=== PATIENT | male | born 1995 | race Caucasian/White ===

== ENCOUNTER → 2018-06-18 15:40 | Outpatient (CLI) | payer OTHER, SELFPAY ==
--- NOTE | 2018-06-18 15:43 | DI.RAD.S_ITS ---
PROCEDURE: XR ANKLE RT MIN 3V INDICATIONS: ANKLE/LOWER TIBIA PAIN TECHNIQUE: 3 views of the right ankle were acquired. COMPARISON: [facility], , ANKLE 3 VIEWS LEFT, 03/03/2011, 13:47. FINDINGS: Bones: No fractures or dislocations. Ankle mortise is normally aligned. No suspicious bony lesions. Soft tissues: No tibiotalar joint effusion. Achilles tendon appears normal. IMPRESSION: No prominent found, source of current pain not identified. Dictated by: Bryson Mills M.D. on 06/18/2018 at 16:20 Approved by: Bryson Mills M.D. on 06/18/2018 at 16:21
== END ==
PROVIDERS: PCP Family Medicine; Visit Provider Family Medicine
DX: M25.571 Pain in right ankle and joints of right foot (principal); M89.8X6 Other specified disorders of bone, lower leg
CPT/HCPCS: 73610

== ENCOUNTER → 2020-07-23 09:51 | Outpatient (CLI) | payer OTHER, SELFPAY ==
--- NOTE | 2020-07-23 | DI.RAD.S_ITS ---
PROCEDURE: XR THORACIC SPINE 3V INDICATIONS: BACK PAIN TECHNIQUE: 3 views of the thoracic spine were acquired. COMPARISON: None. FINDINGS: Bones: No fractures or dislocations. No suspicious bony lesions. 12 pairs of ribs are noted, and appear intact where visualized. Soft tissues: No paravertebral stripe thickening. IMPRESSION: Normal T-spine. Dictated by: Giuliano KEEN Interpreted: Jason Cobos MD on 07/23/2020 at 10:25 Approved by: Jason Cobos M.D. on 07/23/2020 at 10:57
--- NOTE | 2020-07-23 | DI.RAD.S_ITS ---
PROCEDURE: XR LUMBAR SPINE 2-3V INDICATIONS: BACK PAIN TECHNIQUE: 5 views of the lumbar spine were acquired. COMPARISON: None. FINDINGS: Bones: 5 [id number] vertebrae are present. There is normal bony alignment. No vertebral body compression fractures. No suspicious bony lesions. Soft tissues: Overlying bowel gas pattern is normal. No suspicious soft tissue calcifications. IMPRESSION: Normal L-spine. Dictated by: Giuliano Brice [facility] Interpreted: Jason Cobos MD on 07/23/2020 at 10:26 Approved by: Jason Cobos M.D. on 07/23/2020 at 10:57
== END ==
PROVIDERS: PCP Family Medicine; Referring Provider Family Medicine; Visit Provider Family Medicine
DX: M54.9 Dorsalgia, unspecified (principal)
CPT/HCPCS: 72072; 72100

== ENCOUNTER → 2022-12-15 10:23 | Outpatient (ROUT) | payer OTHER, SELFPAY ==
[2022-12-15 12:09] LABS: Urine N gonorrhoeae NOT DETECTED
[2022-12-15 12:19] LABS: Urine Chlamydia NOT DETECTED
== END ==
PROVIDERS: PCP Family Medicine; Visit Provider Physician Assistant
DX: Z11.3 Encounter for screening for infections with a predominantly sexual mode of transmission (principal)
CPT/HCPCS: 87491; 87591

== ENCOUNTER 2023-07-15 17:23 | Emergency (ER) | payer OTHER, SELFPAY ==
[2023-07-15 17:29] VITALS: BP 137/68; PULSE 88; RESP 12; TEMP 37.1; O2SAT 99; BMI 27.8
--- NOTE | 2023-07-15 17:35 | DI.RAD.S_ITS ---
PROCEDURE: XR WRIST LT MIN 3V INDICATIONS: injury TECHNIQUE: 4 views of the wrist were acquired. COMPARISON: [facility], CR, XR HAND LT MIN 3V, 07/15/2023, 17:39. FINDINGS: Bones: There is a mildly displaced fracture seen at the 3rd metacarpal base, with a potential additional fracture involving the 2nd metacarpal base. No fractures of the carpal bones can be seen. Scaphoid view: No navicular fractures are seen. Soft tissues: No suspicious soft tissue calcifications. IMPRESSION: 3rd metacarpal base fracture, with a potential additional fracture of the 2nd metacarpal base. Please consider a follow-up wrist CT for further evaluation. Dictated by: Oseas Yates M.D. on 07/15/2023 at 17:35 Approved by: Oseas Yates M.D. on 07/15/2023 at 17:36
--- NOTE | 2023-07-15 17:35 | DI.RAD.S_ITS ---
PROCEDURE: XR HAND LT MIN 3V INDICATIONS: injury TECHNIQUE: 3 views of the hand(s) acquired. COMPARISON: [facility], CR, XR WRIST LT MIN 3V, 07/15/2023, 17:39. FINDINGS: Bones: There is a mildly displaced fracture seen involving the 3rd metacarpal base, with intra-articular involvement. There is a potential fracture seen involving the 2nd metacarpal base. No fractures of the carpal bones can be seen. Soft tissues: No suspicious soft tissue calcifications. IMPRESSION: Mildly displaced fracture of the 3rd metacarpal base, within additional potential fracture of the 2nd metacarpal base. If it would be helpful for clinical management decision making in this patient with this given history, please consider a dedicated wrist CT for further evaluation. Dictated by: Oseas Yates M.D. on 07/15/2023 at 17:33 Approved by: Oseas Yates M.D. on 07/15/2023 at 17:35
[2023-07-15 19:45] VITALS: BP 126/69; PULSE 64; RESP 16; O2SAT 99
--- NOTE | 2023-07-15 20:04 | ED_ITS ---
HPI - Extremity Injury (Upper) General Chief Complaint: Extremity Injury, Upper Stated Complaint: Hand inj Time Seen by Provider: 07/15/23 19:59 Source: patient Mode of arrival: Family Vehicle Limitations: no limitations History of Present Illness HPI narrative: 27-year-old healthy male with no reported medical issues presents with complaint of left hand injury. Patient was playing softball went to dive for a ball flexed his hand and wrist into the ground and then put his weight of his body on top of it. He has pain particularly in the proximal dorsum of the hand, swelling. Denies any numbness, tingling or weakness. He can move all 5 fingers without issue. He can move at the wrist. He does have little pain radiating down towards the wrist. Denies any other injuries. Patient states happened earlier today. Denies any prior surgeries. No known drug allergies. No abrasions, cuts or scratches. Related Data Home Medications Medication Instructions Recorded Confirmed No Known Home Medications 04/24/19 04/29/19 Allergies Allergy/AdvReac Type Severity Reaction Status Date / Time No Known Drug Allergies Allergy Unverified 04/29/19 15:08 Review of Systems Review of Systems ROS Unobtainable: All systems reviewed & are unremarkable except as noted in HPI and below Patient History Medical History (Updated 07/15/23 @ 20:09 by Polly Almazan DO) Behaviorally induced insufficient sleep syndrome Fatigue Snoring Social History Smoking Status: Former smoker Smoking Status: Former smoker tobacco type: cigarettes alcohol intake frequency: a few times a week Substance Use Type: does not use Exam Narrative Exam Narrative: GENERAL: Alert and oriented x three, male in mild distress. HEENT: Head normocephalic, atraumatic, EOMI, pupils reactive, face symmetric, moist mucous membranes NECK: Supple, full range of motion EXTREMITIES: Normal range of motion, no clubbing. Patient has a edema over the dorsum of the hand. Patient has tenderness of the 2nd and 3rd metacarpal bones distally as well as proximally. No obvious deformity. No bony tenderness of all 5 fingers. No tenderness over the wrist. Patient has full range of motion with flexion, extension, abduction, adduction, as well as the rest of the arm. 2+ radial pulse. Cap refill less than 2 seconds in all 5 fingers. Normal sensation throughout. Neurovascularly intact NEUROLOGICAL: Cranial nerves II through XII grossly intact. Moving all extremities SKIN: Warm, dry, no petechiae, no rashes or lesions, no ecchymosis. Initial Vital Signs Initial Vital Signs: Vital Signs Temperature 98.8 F 07/15/23 17:29 Pulse Rate 88 07/15/23 17:29 Respiratory Rate 12 07/15/23 17:29 Blood Pressure 137/68 07/15/23 17:29 Pulse Oximetry 99 07/15/23 17:29 Oxygen Delivery Method Room Air 07/15/23 17:29 Course Orders Ordered: ED Orders 07/15/23 17:35 XR hand LT min 3V Stat XR wrist LT min 3V Stat Vital Signs Vital signs: Vital Signs - 8 hr 07/15/23 17:29 07/15/23 19:45 Temperature 98.8 F Pulse Rate 88 64 Respiratory Rate 12 16 Blood Pressure 137/68 126/69 Pulse Oximetry 99 99 Oxygen Delivery Method Room Air Room Air MDM - Extremity Injury (Upper) Imaging Data Extremity x-ray #1: Radiologist's Impression: Roland Campuzano??27??M??1995 ? Allergy/Adv: No Known Drug Allergies Close Wrist X-Ray (Signed) Oseas Yates - 07/15/23 Hand X-Ray (Signed) Oseas Yates - 07/15/23 Thoracic Spine X-Ray (Signed) Jason Cobos - 07/23/20 Lumbar Spine X-Ray (Signed) Jason Cobos - 07/23/20 Ankle X-Ray (Signed) Bryson Mills - 06/18/18 Launch?[address] [address] XRay Report Signed Patient: Roland Campuzano MR#: [id number] : 1995 Acct:[id number] Age/Sex: 27 / M Date of Service: 07/15/23 Loc: ED Accession Number: [id number] ?? Procedure: XR hand LT min 3V Ordering Provider: Randolph Vaca D.O. PROCEDURE:? XR HAND LT MIN 3V ? INDICATIONS:? injury ? TECHNIQUE:? 3 views of the hand(s) acquired.? ? COMPARISON:? [facility], CR, XR WRIST LT MIN 3V, 07/15/2023, 17:39. ? FINDINGS:? ? Bones:? There is a mildly displaced fracture seen involving the 3rd metacarpal base, with intra-articular involvement.? There is a potential fracture seen involving the 2nd metacarpal base. ? No fractures of the carpal bones can be seen. ? Soft tissues:? No suspicious soft tissue calcifications.? ? ? IMPRESSION:? Mildly displaced fracture of the 3rd metacarpal base, within additional potential fracture of the 2nd metacarpal base. ? If it would be helpful for clinical management decision making in this patient with this given history, please consider a dedicated wrist CT for further evaluation. ? ? Dictated by: Oseas Yates M.D. on 07/15/2023 at 17:33 ? ? Approved by: Oseas Yates M.D. on 07/15/2023 at 17:35?? Extremity x-ray #2: Radiologist's Impression: [place] [address] XRay Report Signed Patient: Roland Campuzano MR#: [id number] : 1995 Acct:[id number] Age/Sex: 27 / M Date of Service: 07/15/23 Loc: ED Accession Number: [id number] ?? Procedure: XR wrist LT min 3V Ordering Provider: Randolph Vaca D.O. PROCEDURE:? XR WRIST LT MIN 3V ? INDICATIONS: injury ? TECHNIQUE:? 4 views of the wrist were acquired.? ? COMPARISON:? [facility], CR, XR HAND LT MIN 3V, 07/15/2023, 17:39. ? FINDINGS:? ? Bones:? There is a mildly displaced fracture seen at the 3rd metacarpal base, with a potential additional fracture involving the 2nd metacarpal base. ? No fractures of the carpal bones can be seen. ? Scaphoid view:? No navicular fractures are seen. ? Soft tissues:? No suspicious soft tissue calcifications.? ? ? IMPRESSION:? 3rd metacarpal base fracture, with a potential additional fracture of the 2nd metacarpal base. ? Please consider a follow-up wrist CT for further evaluation. ? ? Dictated by: Oseas Yates M.D. on 07/15/2023 at 17:35 ? ? Approved by: Oseas Yates M.D. on 07/15/2023 at 17:36?? [facility] Narrative Medical decision making narrative: 27-year-old male with injury to his left hand. Patient is right-hand dominant with no other reported medical issues. Appears to have a 3rd metacarpal base fracture potential 2nd metacarpal fracture noted on imaging of the hand and wrist. No other fractures appreciated. Patient has some mild swelling. Otherw ise neurovascularly intact. Discussed with Dr. Craig from Orthopedic surger. She reviewed patient images. Recommends hand splint, could use wrist brace with velcro would be appropriate patient can have movement of his fingers. Follow up with the office and no lifting. Patient defers anything for pain feels comfortable this plan. Patient placed in wrist brace, patient tolerated well neurovascularly intact afterwards. Discussed precautions, return precautions, need for follow-up patient to call Sunday morning for an appointment. Discharge Plan Departure Patient Disposition: Home Clinical Impression: Fracture of metacarpal Qualifiers: Encounter type: initial encounter Metacarpal bone: third Fracture type: closed Instructions: Hand Fracture Activity Restrictions/Additional Instructions: You have a fracture or break of the 3rd metacarpal of your hand as well as a possible fracture 2nd metacarpal at the base or close to the wrist. Follow-up with orthopedic surgery in the next week, call tomorrow morning to set up an appointment. No lifting with your left hand until cleared by Orthopedic surgery. You may take Tylenol up to a 1000 mg every 6 hours as needed for pain. Splint Care: Keep splint clean and dry. Elevated affected body part to decrease swelling. OK to use ice pack on the affected body part. Use for 15-20 minutes each time, for 5-6x per day. If you develop worsening pain, numbness, tingling, discoloration of the affected body part, loosen the splint by loosening the BRADLEY wrap, and either see your doctor for an urgent re-assessment, or return to the Emergency Department. Return to the Emergency Department for any new or worsening symptoms. Prescriptions: No Action No Known Home Medications Referrals: Petra Craig MD [Physician] - Nabeel Valentino MD [Primary Care Provider] - Stand Alone Forms: Patient Portal/API, Work Release Note
== END 2023-07-15 20:12 | disposition home or self-care (01) ==
PROVIDERS: Emergency Provider Emergency Medicine; PCP Family Medicine
DX: S62.313A Displaced fracture of base of third metacarpal bone, left hand, initial encounter for closed fracture (principal); W18.39XA Other fall on same level, initial encounter; Y93.68 Activity, volleyball (beach) (court)
CPT/HCPCS: 73110; 73130; 99283